=== PATIENT | female | born 1945 | race Caucasian/White ===

== ENCOUNTER 2016-11-19 17:42 | Emergency (ER) | payer OTHER ==
[~2016-11-19] VITALS: Ht 170.2 cm; Wt 78.6 kg
[~2016-11-19 17:42] MED LIST: ALPRAZOLAM0.25 MG PO; AUGMENTIN875 MG PO; BENADRYL25 MG PO; Bactrim,Septra DS 80 PO; CALCIUM 500 MG1 EACH PO; CALMOSEPTINE O120 GM TP; CEFTIN500 MG PO; CIPROFLOXACIN500 M1 PO; CYCLOBENZAPRINE10 MG PO; Cipro PO; DAILY VALUE1 EACH PO; DOXYCYCLINE HY100 MG PO; DRISDOL50000 UNIT PO; DUONEB3 ML IH; ENDOCET 5-3251 EACH PO; FEOSOL325 MG PO; FLEXERIL10 MG PO; Feosol PO; Florastor PO; HABITROL,NICODE14 MG TD; HYDROCODON-ACE1 EAC7 PO; IRON325 M1 PO; IRON325 MG PO; KETOCONAZOLE60 GM TP; LANSOPRAZOLE30 MG PO; LEVOTHYROXINE88 MCG PO; LOVENOX40 MG/0.4 SC; Levothroid,Synthroid PO; MIDODRINE HCL5 MG PO; NEPHRO-VITE,1 TABLET PO; NITROSTAT,NITR0.4 M1 SL; NORVASC10 MG PO; Norvasc PO; PREVACID30 MG PO; Protonix PO; TIROSINT88 MCG PO; TRAMADOL HCL50 MG PO; TYLENOL EXTRA500 MG PO; VITAMIN D250000 UNIT PO; Zofran IV
[2016-11-19 18:14] LABS: ADD MIUA? YES; BILIRUBIN NEGATIVE; BLOOD LARGE; COLOR YELLOW ((YELLOW)); GLUCOSE (STRIP) NEGATIVE; KETONES NEGATIVE; LEUKOCYTES LARGE; NITRITE NEGATIVE; PROTEIN (STRIP) 30; SPECIFIC GRAVITY 1.016 (1.000-1.030)
[2016-11-19 18:26] LABS: EOSINOPHIL (%) 6.5 % (0-5); EOSINOPHIL COUNT 0.2 K/uL (0-0.3); HEMATOCRIT 42.8 % (36.0-46.0); LYMPHOCYTE COUNT 0.8 K/uL (1.0-2.8); MCH 25.9 PG (29.0-34.0); MCHC 33.6 G/DL (30.0-36.0); MEAN PLAT.VOLUME 9.8 uM^3 (9.5-12.4); MONOCYTE (%) 6.9 % (3-12); MONOCYTE COUNT 0.2 K/uL (0-0.8); NEUTROPHIL (%) 57.6 % (45-76); NEUTROPHIL COUNT 1.5 K/uL (1.8-6.4); PLATELET COUNT 190 K/uL (156-360); RBC DIS.WIDTH-SD 41.2 % (39-53); RED BLOOD COUNT 5.56 M/uL (3.80-5.20); WHITE BLOOD COUNT 2.6 K/uL (4.1-10.2)
[2016-11-19 18:27] LABS: BACTERIA RARE /HPF; EPITHELIAL CELLS 1+ /HPF; MUCUS 1+ /LPF; RED BLOOD CELLS TNTC /HPF (0-5); UCUL ADDED? YES; WHITE BLOOD CELLS TNTC /HPF (0-5); WHITE BLOOD CELLS CLUMP MANY /HPF (0-5)
[2016-11-19 18:34] LABS: CHLORIDE 107 mEq/L (99-109); POTASSIUM 3.8 mEq/L (3.7-5.4); SODIUM 139 mEq/L (136-147)
[2016-11-19 18:36] LABS: GLUCOSE 101 mg/dL (70-99)
[2016-11-19 18:38] LABS: ANION GAP 11 MEQ/L (2-14)
[2016-11-19 18:40] LABS: GFR ESTIMATE (CALCULATED) 47 mL/min/
[2016-11-19 18:41] LABS: UREA NITROGEN (BUN) 20 mg/dL (9-23)
[2016-11-19] MEDS ORDERED: LEVAQUIN500 MG PO (19:42)
[2016-11-19 21:07] VITALS: BP 120/86
== END 2016-11-19 21:22 | disposition home or self-care (01) ==
LOC: EME 17:42
PROVIDERS: Emergency Medicine
DX: N39.0 Urinary tract infection, site not specified (principal)
CPT/HCPCS: 80048; 81003; 83605; 85025; 87040; 87077; 87086; 87801; 99281; 99284; J0696; J7050

== ENCOUNTER 2017-07-16 19:03 | Inpatient (IN) | payer OTHER ==
[~2017-07-16] VITALS: Ht 165.1 cm; Wt 70.7 kg
[~2017-07-16 19:03] MED LIST changes: +ADULT MULTI G200 MCG PO; -DAILY VALUE1 EACH PO; -IRON325 MG PO; +LEVAQUIN500 MG PO; -LEVOTHYROXINE88 MCG PO; +TIROSINT75 MCG PO
[2017-07-16 20:04] LABS: EOSINOPHIL (%) 0.3 % (0-5); HEMATOCRIT 35.3 % (36.0-46.0); IMMATURE GRANULOCYTE (%) 0.7 % (0.0-0.7); IMMATURE GRANULOCYTE COUNT 0.1 K/uL; INSTRUMENT ABS NEUTROPHIL CT 5.8 K/uL; LYMPHOCYTE COUNT 0.6 K/uL (1.0-2.8); MCHC 31.4 G/DL (30.0-36.0); MCV 79.5 FL (83-99); MEAN PLAT.VOLUME 9.2 uM^3 (9.5-12.4); MONOCYTE (%) 7.4 % (3-12); MONOCYTE COUNT 0.5 K/uL (0-0.8); NEUTROPHIL (%) 82.8 % (45-76); NEUTROPHIL COUNT 5.8 K/uL (1.8-6.4); PLATELET COUNT 240 K/uL (156-360); RBC DIS.WIDTH-CV 14.6 % (11.8-14.6); RBC DIS.WIDTH-SD 42.3 % (39-53); RED BLOOD COUNT 4.44 M/uL (3.80-5.20)
[2017-07-16 20:12] LABS: CHLORIDE 103 mEq/L (99-109); POTASSIUM 4.1 mEq/L (3.7-5.4); SODIUM 133 mEq/L (136-147)
[2017-07-16 20:14] LABS: GLUCOSE 114 mg/dL (70-99)
[2017-07-16 20:15] LABS: ANION GAP 14 MEQ/L (2-14)
[2017-07-16 20:18] LABS: ALKALINE PHOSPHATASE 233 IU/L (3-129); GFR ESTIMATE (CALCULATED) 28 mL/min/
[2017-07-16 20:19] LABS: UREA NITROGEN (BUN) 35 mg/dL (9-23)
[2017-07-17] MEDS ORDERED: CRANBERRY 4001 EAC1 PO (00:09)
[2017-07-17] MEDS ORDERED: LOVASTATIN40 MG PO (00:09)
[2017-07-17 01:06] LABS: ADD MIUA? YES; BILIRUBIN NEGATIVE; BLOOD LARGE; COLOR YELLOW ((YELLOW)); GLUCOSE (STRIP) NEGATIVE; KETONES NEGATIVE; LEUKOCYTES LARGE; NITRITE NEGATIVE; PROTEIN (STRIP) 30; SPECIFIC GRAVITY 1.015 (1.000-1.030)
[2017-07-17 01:24] LABS: RED BLOOD CELLS TNTC /HPF (0-5); WHITE BLOOD CELLS 40-50 /HPF (0-5)
[2017-07-17 01:25] LABS: BACTERIA 2+ /HPF; CASTS PRESENT /LPF; CRYSTALS NONE SEEN; EPITHELIAL CELLS RARE /HPF; FINE GRANULAR CASTS 0-5 /LPF; MUCUS NONE SEEN /LPF
[2017-07-17 01:48] LABS: URIC ACID 7.4 mg/dL (3.1-9.2)
[2017-07-17 02:37] VITALS: BP 121/56
[2017-07-17 07:57] VITALS: BP 113/62
[2017-07-17 08:40] LABS: HEMATOCRIT 31.4 % (36.0-46.0); MCH 24.6 PG (29.0-34.0); MCHC 30.3 G/DL (30.0-36.0); MCV 81.3 FL (83-99); MEAN PLAT.VOLUME 9.3 uM^3 (9.5-12.4); PLATELET COUNT 195 K/uL (156-360); RBC DIS.WIDTH-CV 14.8 % (11.8-14.6); RBC DIS.WIDTH-SD 43.9 % (39-53); RED BLOOD COUNT 3.86 M/uL (3.80-5.20)
[2017-07-17 09:19] LABS: ANION GAP 9 MEQ/L (2-14); CHLORIDE 109 MEQ/L (99-109); GFR ESTIMATE (CALCULATED) 30 mL/min/; GLUCOSE 88 mg/dL (70-99); POTASSIUM 4.1 MEQ/L (3.7-5.4); SAMPLE HEMOLYSIS CHECK 0; SAMPLE ICTERIC CHECK 0; SAMPLE LIPEMIA CHECK 0; SODIUM 138 MEQ/L (136-147); UREA NITROGEN (BUN) 36 mg/dL (9-23)
[2017-07-17 12:10] VITALS: BP 92/52
[2017-07-17 14:06] LABS: INTER. NORMALIZED RATIO 1.2; PROTHROMBIN TIME 13.4 SEC (10.2-12.9)
[2017-07-17 14:09] LABS: PTT 29.6 SEC (25-37)
[2017-07-17 18:45] VITALS: BP 123/57
[2017-07-17 23:56] VITALS: BP 94/61
[2017-07-18 04:05] VITALS: BP 95/52
[2017-07-18 07:07] LABS: HEMATOCRIT 27.7 % (36.0-46.0); MCH 24.9 PG (29.0-34.0); MCV 82.9 FL (83-99); MEAN PLAT.VOLUME 9.1 uM^3 (9.5-12.4); PLATELET COUNT 176 K/uL (156-360); RBC DIS.WIDTH-CV 15.2 % (11.8-14.6); RED BLOOD COUNT 3.34 M/uL (3.80-5.20)
[2017-07-18 07:12] VITALS: BP 100/57
[2017-07-18 07:40] LABS: ANION GAP 9 MEQ/L (2-14); CHLORIDE 115 MEQ/L (99-109); GFR ESTIMATE (CALCULATED) 32 mL/min/; GLUCOSE 75 mg/dL (70-99); POTASSIUM 3.8 MEQ/L (3.7-5.4); SAMPLE HEMOLYSIS CHECK 0; SAMPLE ICTERIC CHECK 0; SAMPLE LIPEMIA CHECK 0; SODIUM 142 MEQ/L (136-147); UREA NITROGEN (BUN) 30 mg/dL (9-23)
[2017-07-18 11:23] VITALS: BP 89/52
[2017-07-18 16:19] VITALS: BP 110/55
[2017-07-18 19:48] VITALS: BP 102/62
[2017-07-18 23:58] VITALS: BP 105/60
[2017-07-19 04:05] VITALS: BP 102/65
[2017-07-19 07:03] LABS: EOSINOPHIL (%) 1.9 % (0-5); EOSINOPHIL COUNT 0.1 K/uL (0-0.3); IMMATURE GRANULOCYTE (%) 0.3 % (0.0-0.7); INSTRUMENT ABS NEUTROPHIL CT 2.9 K/uL; LYMPHOCYTE COUNT 0.5 K/uL (1.0-2.8); MCH 25.7 PG (29.0-34.0); MCHC 30.7 G/DL (30.0-36.0); MCV 83.6 FL (83-99); MEAN PLAT.VOLUME 9.3 uM^3 (9.5-12.4); MONOCYTE (%) 6.5 % (3-12); MONOCYTE COUNT 0.2 K/uL (0-0.8); NEUTROPHIL (%) 77.9 % (45-76); NEUTROPHIL COUNT 2.9 K/uL (1.8-6.4); PLATELET COUNT 171 K/uL (156-360); RBC DIS.WIDTH-CV 15.4 % (11.8-14.6); RBC DIS.WIDTH-SD 46.4 % (39-53); RED BLOOD COUNT 3.35 M/uL (3.80-5.20); WHITE BLOOD COUNT 3.7 K/uL (4.1-10.2)
[2017-07-19 07:26] LABS: ANION GAP 7 MEQ/L (2-14); CHLORIDE 118 MEQ/L (99-109); GFR ESTIMATE (CALCULATED) 36 mL/min/; GLUCOSE 79 mg/dL (70-99); POTASSIUM 3.8 MEQ/L (3.7-5.4); SAMPLE HEMOLYSIS CHECK 0; SAMPLE ICTERIC CHECK 0; SAMPLE LIPEMIA CHECK 0; SODIUM 144 MEQ/L (136-147); UREA NITROGEN (BUN) 23 mg/dL (9-23)
[2017-07-19 07:55] VITALS: BP 113/56
[2017-07-19 11:40] VITALS: BP 109/61
[2017-07-19 15:15] VITALS: BP 102/53
[2017-07-19 19:34] VITALS: BP 106/59
[2017-07-19 23:59] VITALS: BP 111/62
[2017-07-20 03:57] VITALS: BP 115/60
[2017-07-20 07:15] VITALS: BP 126/65
[2017-07-20 12:10] VITALS: BP 124/63
[2017-07-20 15:50] VITALS: BP 131/74
[2017-07-20 19:47] VITALS: BP 119/62
[2017-07-20 23:22] VITALS: BP 121/60
[2017-07-21 03:57] VITALS: BP 123/66
[2017-07-21 07:08] VITALS: BP 116/65
[2017-07-21] MEDS ORDERED: AMPICILLIN TRI500 MG PO (12:19)
== END 2017-07-21 13:45 | disposition home health service (06) | DRG 684 ==
LOC: EME 19:03 → EDOF 07-17 00:53 → ENRESERV 07-17 00:54 → 2EASTP 07-17 02:04
PROVIDERS: Emergency Medicine; Hospitalist; Student in an Organized Health Care Education/Training Program; Urology
DX: N17.9 Acute kidney failure, unspecified (principal); N13.6 Pyonephrosis; N28.89 Other specified disorders of kidney and ureter; B95.2 Enterococcus as the cause of diseases classified elsewhere; Z16.21 Resistance to vancomycin; E86.0 Dehydration; E87.6 Hypokalemia; I12.9 Hypertensive chronic kidney disease with stage 1 through stage 4 chronic kidney disease, or unspecified chronic kidney disease; N18.3 Chronic kidney disease, stage 3 (moderate); E03.9 Hypothyroidism, unspecified; D63.8 Anemia in other chronic diseases classified elsewhere; K21.9 Gastro-esophageal reflux disease without esophagitis; R32 Unspecified urinary incontinence; M06.9 Rheumatoid arthritis, unspecified; Z89.511 Acquired absence of right leg below knee; Z99.3 Dependence on wheelchair; Z87.891 Personal history of nicotine dependence; Z87.442 Personal history of urinary calculi; Z87.440 Personal history of urinary (tract) infections; Z23 Encounter for immunization
CPT/HCPCS: 49406; 50433; 74176; 80048; 80053; 81003; 82436; 82570; 83605; 84133; 84300; 84550; 85025; 85027; 85610; 85730; 87040; 87077; 87086; 87186; 87801; 90686; 99281; 99285; C1769; J0696; J1644; J2270; J2405; J3010; J7030; J7050; J7120

== ENCOUNTER 2017-08-21 07:06 | Day surgery (SDC) | payer OTHER ==
[~2017-08-21] VITALS: Ht 165.1 cm; Wt 70.7 kg
[~2017-08-21 07:06] MED LIST changes: +AMPICILLIN TRI500 MG PO; +CRANBERRY 4001 EAC1 PO; +LOVASTATIN40 MG PO
[2017-08-21 07:52] VITALS: BP 123/69
[2017-08-21 07:56] LABS: HEMATOCRIT 38.1 % (36.0-46.0); MCH 25.7 PG (29.0-34.0); MCHC 31.2 G/DL (30.0-36.0); MCV 82.3 FL (83-99); MEAN PLAT.VOLUME 9.4 uM^3 (9.5-12.4); PLATELET COUNT 177 K/uL (156-360); RBC DIS.WIDTH-SD 49.9 % (39-53); RED BLOOD COUNT 4.63 M/uL (3.80-5.20); WHITE BLOOD COUNT 3.3 K/uL (4.1-10.2)
== END 2017-08-21 10:00 | disposition home or self-care (01) ==
LOC: SDC 07:06
PROVIDERS: Urology
DX: N20.0 Calculus of kidney (principal); Z53.8 Procedure and treatment not carried out for other reasons
CPT/HCPCS: 85027; 87641; 93005; J0690; J1580; J3010

== ENCOUNTER 2017-09-07 11:24 | Emergency (ER) | payer OTHER ==
[~2017-09-07] VITALS: Ht 172.7 cm; Wt 68.4 kg
[2017-09-07] MEDS ORDERED: TIROSINT75 MCG PO (12:02)
[2017-09-07 12:48] LABS: EOSINOPHIL COUNT 0.1 K/uL (0-0.3); HEMATOCRIT 39.6 % (36.0-46.0); IMMATURE GRANULOCYTE (%) 0.4 % (0.0-0.7); INSTRUMENT ABS NEUTROPHIL CT 1.4 K/uL; LYMPHOCYTE COUNT 0.9 K/uL (1.0-2.8); MCH 25.9 PG (29.0-34.0); MCHC 31.6 G/DL (30.0-36.0); MCV 82.2 FL (83-99); MEAN PLAT.VOLUME 9.6 uM^3 (9.5-12.4); MONOCYTE (%) 10.1 % (3-12); MONOCYTE COUNT 0.3 K/uL (0-0.8); NEUTROPHIL (%) 53.1 % (45-76); NEUTROPHIL COUNT 1.4 K/uL (1.8-6.4); PLATELET COUNT 147 K/uL (156-360); RBC DIS.WIDTH-CV 16.9 % (11.8-14.6); RBC DIS.WIDTH-SD 50.1 % (39-53); RED BLOOD COUNT 4.82 M/uL (3.80-5.20); WHITE BLOOD COUNT 2.7 K/uL (4.1-10.2)
[2017-09-07 12:59] LABS: CHLORIDE 109 mEq/L (99-109); POTASSIUM 4.5 mEq/L (3.7-5.4); SODIUM 142 mEq/L (136-147)
[2017-09-07 13:01] LABS: GLUCOSE 106 mg/dL (70-99)
[2017-09-07 13:02] LABS: ANION GAP 11 MEQ/L (2-14)
[2017-09-07 13:05] LABS: GFR ESTIMATE (CALCULATED) 43 mL/min/; UREA NITROGEN (BUN) 26 mg/dL (9-23)
[2017-09-07] MEDS ORDERED: CIPRO500 MG PO (15:29)
[2017-09-07 17:03] VITALS: BP 104/66
== END 2017-09-07 17:30 | disposition home or self-care (01) ==
LOC: EME 11:24
PROVIDERS: Emergency Medicine
DX: N20.0 Calculus of kidney (principal); Z93.6 Other artificial openings of urinary tract status; M06.9 Rheumatoid arthritis, unspecified; Z89.511 Acquired absence of right leg below knee; Z88.5 Allergy status to narcotic agent; Z87.891 Personal history of nicotine dependence
CPT/HCPCS: 74176; 80048; 81003; 85025; 99281; 99284; J0696

== ENCOUNTER 2017-10-26 13:15 | Observation (INO) | payer OTHER ==
[~2017-10-26] VITALS: Ht 165.1 cm; Wt 68.1 kg
[~2017-10-26 13:15] MED LIST changes: +CIPRO500 MG PO; +CRANBERRY TABL1 EACH PO
[2017-10-26 13:43] LABS: INTER. NORMALIZED RATIO 1.1
[2017-10-26 13:46] LABS: PTT 32.2 SEC (25-37)
[2017-10-26 14:05] LABS: HEMATOCRIT 38.4 % (36.0-46.0); HEMOGLOBIN 12.1 G/DL (11.9-15.5); MCH 25.8 PG (29.0-34.0); MCHC 31.5 G/DL (30.0-36.0); MCV 81.9 FL (83-99); PLATELET COUNT 153 K/uL (156-360); RBC DIS.WIDTH-CV 15.1 % (11.8-14.6); RBC DIS.WIDTH-SD 45.6 % (39-53); RED BLOOD COUNT 4.69 M/uL (3.80-5.20); WHITE BLOOD COUNT 1.8 K/uL (4.1-10.2)
[2017-10-26 15:01] LABS: ALBUMIN 3.1 G/DL (3.2-4.8); CHLORIDE 111 MEQ/L (99-109); POTASSIUM 4.2 MEQ/L (3.7-5.4); SODIUM 140 MEQ/L (136-147); TOTAL BILIRUBIN 0.5 MG/DL (0.0-1.0)
[2017-10-26 15:07] LABS: ALKALINE PHOSPHATASE 204 IU/L (3-129); ALT (GPT) 19 IU/L (3-49); AST (GOT) 39 IU/L (2-34); CREATININE 1.3 MG/DL (0.6-1.3); GFR ESTIMATE (CALCULATED) 43 mL/min/; GLUCOSE 125 mg/dL (70-99); TOTAL PROTEIN 6.5 G/DL (6.4-8.3); UREA NITROGEN (BUN) 28 mg/dL (9-23)
[2017-10-26 19:30] LABS: APPEARANCE CLOUDY ((CLEAR)); BILIRUBIN NEGATIVE; BLOOD MODERATE; COLOR YELLOW ((YELLOW)); GLUCOSE (STRIP) NEGATIVE; KETONES NEGATIVE; LEUKOCYTES LARGE; NITRITE NEGATIVE; PROTEIN (STRIP) 30; SPECIFIC GRAVITY 1.009 (1.000-1.030); UROBILINOGEN 0.2 MG/DL (0.2-1.0)
[2017-10-26 19:51] VITALS: BP 117/54
[2017-10-26 19:55] LABS: CHLORIDE 110 mEq/L (99-109); POTASSIUM 3.7 mEq/L (3.7-5.4); SODIUM 140 mEq/L (136-147)
[2017-10-26 20:01] LABS: BASOPHIL (%) 0.6 % (0-1); CREATININE 1.1 mg/dL (0.6-1.3); EOSINOPHIL COUNT 0.1 K/uL (0-0.3); GFR ESTIMATE (CALCULATED) 52 mL/min/; HEMATOCRIT 33.7 % (36.0-46.0); HEMOGLOBIN 10.8 G/DL (11.9-15.5); LYMPHOCYTE (%) 35.2 % (15-42); LYMPHOCYTE COUNT 0.6 K/uL (1.0-2.8); MCH 26.2 PG (29.0-34.0); MCV 81.8 FL (83-99); MONOCYTE (%) 8.5 % (3-12); MONOCYTE COUNT 0.2 K/uL (0-0.8); NEUTROPHIL (%) 51.7 % (45-76); NEUTROPHIL COUNT 0.9 K/uL (1.8-6.4); PLATELET COUNT 139 K/uL (156-360); RBC DIS.WIDTH-CV 14.9 % (11.8-14.6); RED BLOOD COUNT 4.12 M/uL (3.80-5.20); UREA NITROGEN (BUN) 28 mg/dL (9-23); WHITE BLOOD COUNT 1.8 K/uL (4.1-10.2)
[2017-10-26 20:02] LABS: GLUCOSE 87 mg/dL (70-99)
[2017-10-26 20:22] LABS: BACTERIA 4+ /HPF; EPITHELIAL CELLS RARE /HPF; MUCUS NONE SEEN /LPF; RED BLOOD CELLS 0-5 /HPF (0-5); WHITE BLOOD CELLS TNTC /HPF (0-5)
[2017-10-27 00:08] VITALS: BP 98/53
[2017-10-27 06:32] LABS: CHLORIDE 112 MEQ/L (99-109); CREATININE 1.1 MG/DL (0.6-1.3); GFR ESTIMATE (CALCULATED) 52 mL/min/; GLUCOSE 83 mg/dL (70-99); POTASSIUM 3.7 MEQ/L (3.7-5.4); SODIUM 141 MEQ/L (136-147); UREA NITROGEN (BUN) 23 mg/dL (9-23)
[2017-10-27 07:20] LABS: HEMATOCRIT 30.9 % (36.0-46.0); HEMOGLOBIN 9.7 G/DL (11.9-15.5); MCH 25.7 PG (29.0-34.0); MCHC 31.4 G/DL (30.0-36.0); PLATELET COUNT 122 K/uL (156-360); RBC DIS.WIDTH-CV 14.9 % (11.8-14.6); RBC DIS.WIDTH-SD 44.9 % (39-53); RED BLOOD COUNT 3.77 M/uL (3.80-5.20)
[2017-10-27 07:27] LABS: WHITE BLOOD COUNT 1.6 K/uL (4.1-10.2)
[2017-10-27 09:32] VITALS: BP 98/55
[2017-10-27 12:43] VITALS: BP 107/53
[2017-10-27 15:00] VITALS: BP 115/75
[2017-10-27 18:03] VITALS: BP 110/53
== END 2017-10-27 20:37 | disposition home or self-care (01) ==
LOC: OPR 13:15 → EME 13:15 → EDSTATUS 14:00 → OPR 14:00 → EME 15:50 → 5WEST 18:13 → EDOF 18:13 → ENRESERV 18:17 → 5WEST 19:31
PROVIDERS: Hospitalist; Urology
DX: T83.122A Displacement of indwelling ureteral stent, initial encounter (principal); N20.0 Calculus of kidney; D61.818 Other pancytopenia; I12.9 Hypertensive chronic kidney disease with stage 1 through stage 4 chronic kidney disease, or unspecified chronic kidney disease; N18.2 Chronic kidney disease, stage 2 (mild); M19.90 Unspecified osteoarthritis, unspecified site; Z89.511 Acquired absence of right leg below knee; K21.9 Gastro-esophageal reflux disease without esophagitis; T81.89XA Other complications of procedures, not elsewhere classified, initial encounter; M06.9 Rheumatoid arthritis, unspecified; D53.9 Nutritional anemia, unspecified; E03.9 Hypothyroidism, unspecified; Z82.3 Family history of stroke; Z88.5 Allergy status to narcotic agent; Z86.19 Personal history of other infectious and parasitic diseases; Z99.3 Dependence on wheelchair
CPT/HCPCS: 71045; 74150; 80048; 80048 91; 80053; 81003; 83605; 85025; 85027; 85610; 85730; 87040; G0378; J0290; J1644; J2405; J7030; J7050